=== PATIENT | female | born 1955 | race Caucasian/White ===

== ENCOUNTER 2017-09-08 16:25 | Emergency (ER) | payer OTHER ==
[~2017-09-08] VITALS: Ht 160 cm; Wt 73.1 kg
[~2017-09-08 16:25] MED LIST: ADVIL,NUPRIN,M200 MG PO; BENADRYL ALLERG25 MG PO; BENADRYL25 MG PO; CELEXA20 MG PO; CIPRO500 MG PO; DICYCLOMINE HCL20 MG PO; DILAUDID; DILAUDID2 MG PO; ELAVIL25 MG PO; FIORICET,ESG1 TABLET PO; FLAGYL500 MG PO; HABITROL,NICODE21 MG TD; KLONOPIN0.5 M1 PO; LEVAQUIN750 MG PO; MIRALAX17 GM PO; MOBIC; MOBIC7.5 MG PO; PERCOCET 5/31 TABLET PO; PROMETHAZINE HC25 M1 PO; PROTONIX40 MG PO; RESTORIL30 MG PO; STOOL SOFTENER100 MG PO; TYLENOL650 MG PR; Tylenol Regular Stre PO; VALIUM5 MG PO; [UNRECOGNIZED DRUG - REMARK]; trazadone
[2017-09-08 17:12] LABS: MCH 32.6 PG (29.0-34.0); MCHC 34.2 G/DL (30.0-36.0); MCV 95.3 FL (83-99); MEAN PLAT.VOLUME 10.5 uM^3 (9.5-12.4); PLATELET COUNT 236 K/uL (156-360); RBC DIS.WIDTH-CV 12.8 % (11.8-14.6); RBC DIS.WIDTH-SD 44.9 % (39-53); RED BLOOD COUNT 4.72 M/uL (3.80-5.20); WHITE BLOOD COUNT 10.5 K/uL (4.1-10.2)
[2017-09-08 17:22] LABS: CHLORIDE 111 mEq/L (99-109); POTASSIUM 4.2 mEq/L (3.7-5.4); SODIUM 143 mEq/L (136-147)
[2017-09-08 17:24] LABS: GLUCOSE 94 mg/dL (70-99)
[2017-09-08 17:25] LABS: ANION GAP 9 MEQ/L (2-14)
[2017-09-08 17:27] LABS: GFR ESTIMATE (CALCULATED) > 59 mL/min/
[2017-09-08 17:28] LABS: UREA NITROGEN (BUN) 19 mg/dL (9-23)
[2017-09-08 17:34] LABS: TROP-I INTERPRETATION NEGATIVE; TROPONIN-I < 0.01 ng/mL (0.0-0.30)
[2017-09-08 18:15] LABS: TOTAL BILIRUBIN 0.3 mg/dL (0.0-1.0)
[2017-09-08 18:16] LABS: ALKALINE PHOSPHATASE 126 IU/L (3-129)
[2017-09-08 19:35] LABS: LIPASE 72 U/L (1.0-51.0)
[2017-09-08 20:42] LABS: TROP-I INTERPRETATION NEGATIVE; TROPONIN-I < 0.01 ng/mL (0.0-0.30)
[2017-09-08] MEDS ORDERED: CARAFATE1 GM PO (22:13)
[2017-09-08] MEDS ORDERED: OMEPRAZOLE20 MG PO (22:13)
[2017-09-08 23:07] VITALS: BP 127/75
== END 2017-09-08 23:09 | disposition home or self-care (01) ==
LOC: EME 16:25
PROVIDERS: Physician Assistant
DX: R10.10 Upper abdominal pain, unspecified (principal); R07.9 Chest pain, unspecified; R06.02 Shortness of breath; R11.10 Vomiting, unspecified; N20.0 Calculus of kidney; N28.1 Cyst of kidney, acquired; Z87.442 Personal history of urinary calculi; Z90.10 Acquired absence of unspecified breast and nipple; F17.200 Nicotine dependence, unspecified, uncomplicated
CPT/HCPCS: 71020; 74177; 76705; 80048; 80053; 83690; 84484; 85027; 93005; J7030

== ENCOUNTER 2018-01-28 11:41 | Emergency (ER) | payer OTHER ==
[~2018-01-28] VITALS: Ht 162.6 cm; Wt 73.7 kg
[~2018-01-28 11:41] MED LIST changes: +CARAFATE1 GM PO; +OMEPRAZOLE20 MG PO
[2018-01-28 12:31] LABS: HEMATOCRIT 45.6 % (36.0-46.0); HEMOGLOBIN 15.8 G/DL (11.9-15.5); MCH 32.4 PG (29.0-34.0); MCHC 34.6 G/DL (30.0-36.0); MCV 93.6 FL (83-99); PLATELET COUNT 231 K/uL (156-360); RBC DIS.WIDTH-CV 12.7 % (11.8-14.6); RBC DIS.WIDTH-SD 43.8 % (39-53); RED BLOOD COUNT 4.87 M/uL (3.80-5.20); WHITE BLOOD COUNT 10.6 K/uL (4.1-10.2)
[2018-01-28 12:42] LABS: ALBUMIN 3.7 g/dL (3.2-4.8); CHLORIDE 107 mEq/L (99-109); SODIUM 140 mEq/L (136-147)
[2018-01-28 12:44] LABS: GLUCOSE 79 mg/dL (70-99); TOTAL PROTEIN 6.3 g/dL (6.4-8.3)
[2018-01-28 12:46] LABS: TOTAL BILIRUBIN 0.4 mg/dL (0.0-1.0)
[2018-01-28 12:48] LABS: ALKALINE PHOSPHATASE 135 IU/L (3-129); CREATININE 0.7 mg/dL (0.6-1.3); GFR ESTIMATE (CALCULATED) > 59 mL/min/
[2018-01-28 12:49] LABS: UREA NITROGEN (BUN) 13 mg/dL (9-23)
[2018-01-28 12:50] LABS: AST (GOT) 12 IU/L (2-34)
[2018-01-28 12:51] LABS: ALT (GPT) 15 IU/L (3-49); LIPASE 8 U/L (1.0-51.0)
[2018-01-28 13:23] LABS: APPEARANCE CLEAR ((CLEAR)); BILIRUBIN NEGATIVE; BLOOD NEGATIVE; COLOR YELLOW ((YELLOW)); GLUCOSE (STRIP) NEGATIVE; KETONES NEGATIVE; LEUKOCYTES NEGATIVE; NITRITE NEGATIVE; PROTEIN (STRIP) NEGATIVE; UCUL ADDED? NO; UROBILINOGEN 0.2 MG/DL (0.2-1.0)
[2018-01-28 13:34] LABS: SPECIFIC GRAVITY > 1.060 (1.000-1.030)
[2018-01-28] MEDS ORDERED: CARAFATE1 GM PO (14:23)
[2018-01-28] MEDS ORDERED: ZOFRAN ODT4 MG PO (14:23)
[2018-01-28 14:46] VITALS: BP 118/90
== END 2018-01-28 14:46 | disposition home or self-care (01) ==
LOC: EME 11:41
PROVIDERS: Nurse Practitioner Acute Care
DX: K21.9 Gastro-esophageal reflux disease without esophagitis (principal); K43.9 Ventral hernia without obstruction or gangrene; F17.200 Nicotine dependence, unspecified, uncomplicated; Z87.442 Personal history of urinary calculi
CPT/HCPCS: 74177; 80053; 81003; 83690; 85027; 99281; 99285; J7030